=== PATIENT | female | born 1955 | race Caucasian/White ===

== ENCOUNTER → 2017-01-07 | Outpatient (CLI) | payer BC ==
[~2017-01-07] MED LIST: DEPO METHYLPREDNISOLONE 40 MG/ML SDV ONE; IOPAMIDOL (ISOVUE 370) 100 ML BTL IV ONE; LIDOCAINE 1% 2 ML INJ ONE; LIDOCAINE 1% 300 MG/30 ML SDV ONE; ROPIVACAINE HCL 150 MG/30 ML INJ ONE
== END ==
LOC: FIMAGING 12:59
PROVIDERS: ATTEND Orthopaedic Surgery
PROC: 3E0U3BZ Introduction of Anesthetic Agent into Joints, Percutaneous Approach (ICD-10-PCS; principal; 2017-01-07)
PROC: 3E0U33Z Introduction of Anti-inflammatory into Joints, Percutaneous Approach (ICD-10-PCS; principal; 2017-01-07)
DX: M25.552 Pain in left hip (principal)
CPT/HCPCS: J1030; J2795; Q9967

== ENCOUNTER → 2017-06-21 | Outpatient (CLI) | payer BC | LOC: FIMAGING 14:48 | PROVIDERS: ATTEND Family Medicine Sports Medicine | DX: Z12.31 Encounter for screening mammogram for malignant neoplasm of breast (principal) | CPT/HCPCS: G0202 ==

== ENCOUNTER 2017-09-24 05:28 | Emergency (ER) | payer BC ==
[2017-09-24 05:34] VITALS: TEMP 98.4
[2017-09-24] MEDS ORDERED: NS 1,000 ML IV ONE (05:45)
--- NOTE | 2017-09-24 05:56 | EDPHY ---
H & P Stated Complaint: R abd pain since 2099, N/V/D Time Seen by Provider: 09/24/17 05:38 HPI/ROS: Chief Complaint: Abdominal pain HPI: 62-year-old woman began developing right sided abdominal pain several hours ago while on a plane flight to [place]. Has had some nausea and vomiting. No coffee grounds or blood in her emesis. She has had some loose thin caliber stools but no ghassan diarrhea. No dark tarry stools or blood. She is currently being treated with metronidazole for a dental abscess and is scheduled for dental surgery tomorrow. Patient came home went to bed but woke this morning with pain returning again. Is primarily in the right side. About a 4/10. There are no aggravating or alleviating factors. Is not moving. She has not had similar episodes in the past. No abdominal surgeries. No fevers or chills. No cough. ROS: 10 point Review of Systems is negative except as noted in the HPI. PMH: Denies Social History: No smoking, no alcohol, no recreational drug use Family History: non-contributory Physical Exam: Gen: Awake, Alert, No Distress HEENT: Nose: no rhinorrhea Eyes: PERRLA, EOMI Mouth: Moist mucosa Neck: Supple, no JVD Chest: nontender, lungs clear to auscultation Heart: S1, S2 normal, no murmur Abd: Soft, moderate right lower quadrant tenderness, no guarding, no upper abdominal tenderness, negative Eng sign. Back: no CVA tenderness, no midline tenderness Ext: no edema, non-tender Skin: no rash Neuro: CN II-XII intact, Sensation grossly intact, Strength 5/5 in bilateral upper and lower extremities - Personal History Current Tetanus/Diphtheria Vaccine: Yes - Medical/Surgical History Hx Asthma: No Hx Chronic Respiratory Disease: No Hx Diabetes: No Hx Cardiac Disease: No Hx Renal Disease: No Hx Cirrhosis: No Hx Alcoholism: No Hx HIV/AIDS: No Hx Splenectomy or Spleen Trauma: No Other PMH: denies - Social History Smoking Status: Never smoked Constitutional: Initial Vital Signs Temperature (C) 36.9 C 09/24/17 05:30 Heart Rate 70 09/24/17 05:30 Respiratory Rate 18 09/24/17 05:30 Blood Pressure 102/77 09/24/17 05:30 O2 Sat (%) 94 09/24/17 05:30 O2 Delivery Mode Room Air Allergies/Adverse Reactions: No Known Allergies Allergy (Unverified 01/14/10 10:15) Home Medications: Medication Instructions Recorded Hydrocodone/Acetaminophen 1 - 2 each PO Q4-6PRN PRN #10 09/24/17 [Hydrocodon-Acetaminophen 5-325] tablet Tamsulosin HCl 0.4 mg PO DAILY #10 cap 09/24/17 Medical Decision Making - Diagnostics Imaging Results: Imaging Impressions Abdomen CT 09/24/17 05:45 Impression: 1. A 2-mm calculus at the right ureteropelvic junction, with mild right hydronephrosis. Nonobstructive calculi in both kidneys. 2. Constipation. No CT findings for appendicitis. 3. Other chronic findings, as above. Results called and discussed with Rene Carr M.D., on September 24, 2017 at 0702. Final interpretation concurs with initial preliminary photonics engineer radiologist impression. CT scan of the abdomen and pelvis: 2 mm prox R ureteral stone with minimal hydro. Normal appendix, moderate constipation. Interpreted by Dr. Harrington. Imaging: Discussed imaging studies w/ orthoptist Radiologist ED Course/Re-evaluation: CT scan reveals kidney stone. No appendicitis. Patient's pain is controlled. Will discharge on tamsulosin analgesia, follow up with Urology. - Data Points Laboratory Results: Laboratory Results 09/24/17 05:55 09/24/17 05:55 Medications Given: Discontinued Medications Sodium Chloride (Ns) 1,000 mls @ 0 mls/hr IV ONCE ONE; Wide Open PRN Reason: Protocol Stop: 09/24/17 05:46 Last Admin: 09/24/17 06:01 Dose: 1,000 mls Departure - Departure Disposition: Home, Routine, Self-Care Clinical Impression: Kidney stone Condition: Good Instructions: Kidney Stones (ED) Additional Instructions: Follow up with Urology in 3-4 days if symptoms are not improving. Return to the emergency depart for increasing abdominal pain, fevers or chills, nausea, vomiting, or any other concerns. Referrals: Corky Carrion MD [Primary Care Provider] - As per Instructions Fredrick Frankel MD [Medical Doctor] - As per Instructions Prescriptions: Hydrocodone/Acetaminophen [Hydrocodon-Acetaminophen 5-325] 1 - 2 each PO Q4- 6PRN PRN #10 tablet PRN Reason: Pain, Severe Tamsulosin HCl 0.4 mg PO DAILY #10 cap
[2017-09-24 06:14] LABS: PLATELET COUNT 236 10^3/uL (150-400)
[2017-09-24] MEDS ORDERED: IOPAMIDOL (ISOVUE-300) 100 ML BTL ONE (06:19)
[2017-09-24 07:28] VITALS: BP 103/71; PULSE 98; RESP 16; O2SAT 98
== END 2017-09-24 07:28 | disposition home or self-care (01) ==
DX: N20.0 Calculus of kidney (principal); E86.9 Volume depletion, unspecified
CPT/HCPCS: Q9967

== ENCOUNTER 2017-11-13 05:57 | Inpatient (IN) | payer BC ==
[~2017-11-13 05:57] MED LIST changes: -DEPO METHYLPREDNISOLONE 40 MG/ML SDV ONE; -IOPAMIDOL (ISOVUE 370) 100 ML BTL IV ONE; -LIDOCAINE 1% 2 ML INJ ONE; -LIDOCAINE 1% 300 MG/30 ML SDV ONE; +ROPIVACAINE 0.2% 80 MG, EPINEPHrine 0.2 MG, KETOROLAC TROMETHAMINE 30 MG in SYRINGE 0 ML IU ONE; -ROPIVACAINE HCL 150 MG/30 ML INJ ONE
[2017-11-13] MEDS ORDERED: BUPI/epINEPH/KETOROLAC IU ONE (06:00)
[2017-11-13] MEDS ORDERED: TRANEXAMIC ACID 3,000 MG in NS (SYRINGE) 50 ML IRR ONE (06:00)
[2017-11-13] MEDS ORDERED: ceFAZolin 2 GM/SWFI 2 GM/20 ML SYR IVP ONE (06:11)
[2017-11-13] MEDS ORDERED: ACETAMINOPHEN 325 MG TAB PO ONE (06:11)
[2017-11-13] MEDS ORDERED: DEXAMETHASONE 4 MG/ML VIAL IVP ONE (06:11)
[2017-11-13] MEDS ORDERED: FAMOTIDINE 20 MG TAB PO ONE (06:11)
[2017-11-13] MEDS ORDERED: LIDOCAINE 1% 2 ML INJ ID PRN (06:14)
[2017-11-13] MEDS ORDERED: LR 1,000 ML IV ONE (06:14)
[2017-11-13] MEDS ORDERED: TRANEXAMIC ACID 3,000 MG/50 ML BAG IRR ONE (06:40)
[2017-11-13] MEDS ORDERED: MIDAZOLAM 2 MG/2 ML VIAL IVP ONE (07:00)
[2017-11-13] MEDS ORDERED: SCOPOLAMINE HYDROBROMIDE 1 MG/3 DAYS PATCH TD SCH (07:00)
[2017-11-13] MEDS ORDERED: DEXAMETHASONE 4 MG/ML VIAL IVP PRN (07:02)
[2017-11-13] MEDS ORDERED: LR 500 ML IV PRN (07:02)
[2017-11-13] MEDS ORDERED: epHEDrine SULFATE 10 MG/ML SYR IVP PRN (07:02)
[2017-11-13] MEDS ORDERED: MIDAZOLAM 2 MG/2 ML VIAL ONE (07:02)
[2017-11-13] MEDS ORDERED: NALOXONE HCL 0.4 MG/ML INJ IVP PRN (07:02)
[2017-11-13] MEDS ORDERED: fentaNYL 100 MCG/2 ML INJ IVP PRN (07:02)
[2017-11-13] MEDS ORDERED: ONDANSETRON 4 MG/2 ML VIAL IVP PRN ×2 (07:02→07:18)
--- NOTE | 2017-11-13 07:02 | PDANEPAE ---
ANE History of Present Illness here for L HERO ANE Past Medical History - Cardiovascular History Hx Hypertension: No Hx Arrhythmias: No Hx Chest Pain: No Hx Coronary Artery / Peripheral Vascular Disease: No Hx CHF / Valvular Disease: No Hx Palpitations: No - Pulmonary History Hx COPD: No Hx Asthma/Reactive Airway Disease: No Hx Recent Upper Respiratory Infection: No Hx Oxygen in Use at Home: No Hx Sleep Apnea: No Sleep Apnea Screening Result - Last Documented: Negative - Neurologic History Hx Cerebrovascular Accident: No Hx Seizures: No Hx Dementia: No - Endocrine History Hx Diabetes: No Hyperthyroid: No Obesity: no - Renal History Hx Renal Disorders: No Renal History Comment: HX KIDNEY STONES - Liver History Hx Hepatic Disorders: No - Neurological & Psychiatric Hx Hx Neurological and Psychiatric Disorders: Yes Neurological / Psychiatric History Comment: DEPRESSION ANXIETY - Cancer History Hx Cancer: No - Congenital Disorder History Hx Congenital Disorders: No - GI History Hx Gastrointestinal Disorders: No - Other Health History Other Health History: OSTEOPENIA - Chronic Pain History Chronic Pain: Yes - Surgical History Prior Surgeries: RT SHOULDER IMPIGMENT AND LABRUM REPAIR 2015. ANE Review of Systems Review of systems is: negative Review of Systems: - Exercise capacity Exercise capacity: >=4 METS METS (RN): 5 METS ANE Patient History - Allergies Allergies/Adverse Reactions: No Known Allergies Allergy (Unverified 01/14/10 10:15) - Home Medications Home medications: home medication list seen and reviewed Home Medications: Calcium Carbonate [Oyster Shell Calcium 500 mg (*)] 1,000 mg PO DAILY 10/28/17 [ Last Taken 11/06/17] Cholecalciferol Vit D3 [Vitamin D3 2000 units tab (OTC)] 2,000 units PO DAILY [Last Taken 11/06/17] Escitalopram Oxalate [Lexapro] 10 mg PO HS 10/28/17 [Last Taken 11/12/17] Ibuprofen [Motrin (*)] 200 mg PO DAILY PRN 10/28/17 [Last Taken 11/06/17] - NPO status NPO Status: no food or drink >8 hours NPO Since - Liquids (Date): 11/12/17 NPO Since - Liquids (Time): 19:00 NPO Since - Solids (Date): 11/12/17 NPO Since - Solids (Time): 19:00 - Anes Hx Anes Hx: no prior problems - Smoking Hx Smoking Status: Never smoked - Family Anes Hx Family Hx Anesthesia Complications: NA ANE Labs/Vital Signs - Vital Signs Vital Signs: reviewed preoperatively; see RN documention for details Blood Pressure: 90/58 Heart Rate: 67 Respiratory Rate: 16 O2 Sat (%): 95 Height: 167.64 cm Weight: 61.235 kg ANE Physical Exam - Airway Neck exam: FROM Mallampati Score: Class 1 - Pulmonary Pulmonary: no respiratory distress - Cardiovascular Cardiovascular: regular rate and rhythym - ASA Status ASA Status: II ANE Anesthesia Plan Anesthesia Plan: MAC, spinal
[2017-11-13] MEDS ORDERED: fentaNYL 100 MCG/2 ML INJ ONE (07:05)
[2017-11-13] MEDS ORDERED: BUPIVACAINE 0.5% 30 ML SDV ONE (07:08)
--- NOTE | 2017-11-13 07:11 | PDHPUP ---
History & Physical Update H&P update statement: This history and physical update is based on an assessment of the patient which was completed after admission or registration (within 24 hours), but prior to the surgery/procedure. H&P update: H&P reviewed & patient examined, no change in patient's condition since H&P completed
[2017-11-13] MEDS ORDERED: SCOPOLAMINE HYDROBROMIDE 1 MG/3 DAYS PATCH TD ONE (07:15)
[2017-11-13] MEDS ORDERED: DIPHENOXYLATE/ATROPINE LOMOTIL 1 TAB PO PRN (07:18)
[2017-11-13] MEDS ORDERED: ONDANSETRON DISINTEGRATING 4 MG TAB PO PRN (07:18)
[2017-11-13] MEDS ORDERED: PROMETHAZINE HCL 25 MG SUPPR PR PRN (07:18)
[2017-11-13] MEDS ORDERED: TEMAZEPAM 15 MG CAP PO PRN (07:18)
[2017-11-13] MEDS ORDERED: PROMETHAZINE HCL 25 MG/ML INJ IVP PRN (07:18)
[2017-11-13] MEDS ORDERED: LACTULOSE 20 GM/30 ML UDCUP PO PRN (07:18)
[2017-11-13] MEDS ORDERED: METOCLOPRAMIDE 10 MG/2 ML VIAL IVP PRN (07:18)
[2017-11-13] MEDS ORDERED: BISACODYL 10 MG SUPP PR PRN (07:18)
[2017-11-13] MEDS ORDERED: POLYETHYLENE GLYCOL 3350 17 GM PKT PO PRN (07:18)
[2017-11-13] MEDS ORDERED: CYCLOBENZAPRINE 10 MG TAB PO PRN (07:18)
[2017-11-13] MEDS ORDERED: diphenhydrAMINE 25 MG CAP PO PRN (07:18)
[2017-11-13] MEDS ORDERED: MAGNESIUM HYDROXIDE 30 ML UDCUP PO PRN (07:18)
[2017-11-13] MEDS ORDERED: PROPOFOL/EMULSION 500 MG/50 ML BOTTLE IV ONE (07:22)
[2017-11-13] MEDS ORDERED: LR 1,000 ML IV SCH (07:30)
[2017-11-13] MEDS ORDERED: PROPOFOL 200 MG/20 ML VIAL ONE (07:59)
--- NOTE | 2017-11-13 08:22 | PDMN ---
Medical Necessity Medical necessity: S560 hip arthroplasty A-2 INPT only: L HERO
--- NOTE | 2017-11-13 08:24 | POSTOPPROG ---
Post Op Note Date of Operation: 11/13/17 Surgeon: Boby Almeida Head Boys Golf Coach: triston almeida Anesthesiologist: dr. ortega Anesthesia: Spinal Pre-op Diagnosis: left hip OA Post-op Diagnosis: same Indication: left hip pain Procedure: L HERO ant approach Findings: severe hip OA Inf/Abcess present in the surg proc area at time of surgery?: No EBL: 100-500
[2017-11-13] MEDS: ACETAMINOPHEN 325 MG TAB PO SCH ×3 (11:53→23:49)
[2017-11-13] MEDS: oxyCODONE IR 5 MG TAB PO PRN ×4 (11:57→20:40)
[2017-11-13] MEDS: SENNOSIDES/DOCUSATE SODIUM TAB PO SCH ×2 (12:27→20:40)
[2017-11-13] MEDS: ceFAZolin 2 GM/SWFI 2 GM/20 ML SYR IVP SCH ×2 (13:46→21:33)
--- NOTE | 2017-11-13 13:46 | POSTANESTH ---
Post Anesthetic Evaluation Cardiovascular Status: Normal, Stable Respiratory Status: Normal, Stable Level of Consciousness/Mental Status: Can Participate in Eval Pain Control: Adequate, Prn Tx Ordered Nausea/Vomiting Control: Adequate, Prn Tx Ordered Complications Possibly Related to Anesthesia: None Noted
[2017-11-13] MEDS ORDERED: ceFAZolin 2 GM/DEXTROSE 100 ML IV SCH (14:00)
--- NOTE | 2017-11-13 17:50 | GOP ---
[f rep st] OPERATIVE REPORT DATE OF OPERATION: 11/13/2017 SURGEON: Tom Ochoa MD LOCKSTITCH BINDER: LUAN Ureña. ANESTHESIA: Spinal. PREOPERATIVE DIAGNOSIS: Left hip osteoarthritis. POSTOPERATIVE DIAGNOSIS: Left hip osteoarthritis. PROCEDURE PERFORMED: Left total hip arthroplasty with x-ray. FINDINGS: ESTIMATED BLOOD LOSS: 200 cc. INDICATIONS: The patient has progressively worsening arthritis of the hip which has failed medical m anagement. The patient understands the treatment options including continued non-operative care and has selected surgical intervention. The patient has decided to undergo total hip arthroplasty via th e direct anterior approach, understanding the risks of the procedure including, but not limited to, n eurovascular injury, infection, persistent pain, component wear and loosening, deep venous thrombosis , pulmonary embolism, limb length inequality, hip instability (including dislocation), and intra-oper ative fractures. DESCRIPTION OF PROCEDURE: After proper identification of the patient including verification and velma ing the surgical site, the patient was brought to the operating room and placed in the supine positio n. All bony prominences were well padded. Anesthesia was induced without complication and intraveno us prophylactic antibiotics were administered prior to skin incision. The operative leg was placed in the Trumpf Arch table extension and the well leg in a Yellofin leg ho lder. The patient was prepped and draped in the usual sterile fashion. The C-arm was draped for int ra-operative fluoroscopy to check acetabular position, femoral component position including leg lengt h and femoral offset. Attention was then drawn to surgical exposure of the hip. An incision was made with a #10 Bard Romeo r blade starting 3 cm lateral and 3 cm distal to the anterior superior iliac spine measuring 8-10 cm and coursing distally toward the greater trochanter. The skin and subcutaneous tissues were divided sharply down to the fascia anastasiya. The fascia anastasiya was incised in line with the skin incision exposing the underlying tensor fascia anastasiya muscle. The muscle was bluntly elevated from the fascia and the f irst extracapsular Cobra retractor was placed laterally at the junction of the superior femoral neck and greater trochanter. The lateral femoral circumflex vessels were identified, cauterized, and divi ded with the Aquamantys bipolar cautery. The deep investing fascia of the TFL was divided to allow p eduar mobilization of the muscle preventing damage during the retraction. The reflected head of the rectus femoris muscle was elevated off the anterior hip capsule and a medial Cobra retractor was plac ed just proximal to the lesser trochanter. The anterior capsulotomy was made sharply from the superolateral acetabulum to the saddle junction of the superior femoral neck and greater trochanter, then coursing inferomedial towards the lesser troc hanter. The retractors were then placed in the intracapsular position for femoral neck osteotomy. C orresponding to pre-operative templating, the osteotomy was made with the oscillating saw carefully p rotecting the greater trochanter and soft tissues. The femoral head was removed from the acetabulum with a corkscrew and confirmed to be severely arthritic with exposed bone, deformity and osteophytes. Similar findings were confirmed in the acetabulum. The Arch table extension was then placed in 40 degrees external rotation. Attention was then drawn to the acetabular preparation. After placement of the anterior and posterio r Cobra retractors outside the labrum and intracapsular, the circumferential labrum was removed sharp ly. The foveal contents were then removed and hemostasis obtained with cautery. The first reamer selected was sized using the removed femoral head. Reaming began with medialization and then commenced in 2 mm increments at 45 degrees of abduction and 15 degrees of anteversion using fluoroscopic navigation. Reaming ceased 1 mm less than the definitive acetabular component and ana esponded to the pre-operative templating. The final acetabular component was inserted using fluorosc opy to achieve proper orientation yielding excellent purchase and stability in the acetabulum. The f inal acetabular liner was then placed and its seating confirmed. Attention was then turned to the femur. The Arch table extension was placed in extension and adducti on, delivering the osteotomized femoral neck into the wound. A 2-pronged femoral elevator was placed at the calcar and another at the tip of the greater trochanter. The posterolateral capsule was rele ased with cautery allowing mobilization of the femur lateral and anterior for preparation. The exter nal rotators were visualized and preserved. A curette and rongeur were used to open the starting poi nt for broaching. Serial broaching started with the #0 broach and ended with the broach that exhibit ed excellent fit in the proximal femur. A change in pitch during mallet strikes was accompanied by t he inability to advance the broach any further. The trial reduction was performed and fluoroscopic n avigation was utilized to check limb length. Adjustments were made to equalize limb length according ly. After the final trials were accepted they were removed and the wound was copiously lavaged. The femo ral component was seated to the same depth as the final broach and the femoral head was impacted onto the clean trunnion. The hip was then reduced for the final time and once more fluoroscopy was used to check that limb length equality was achieved. The wound was irrigated and closed in layers, the fascia anastasiya with 2-0 Quill, the subcutaneous tissue with 2-0 Quill, and the skin with Dermabond. Sterile dressings were applied. Final sharps and spon ge counts were accurate. The patient was then transferred to a hospital bed and brought to the [facility] room in stable condition. IMPLANTS: Accolade II, size 4 at 127. Acetabular component a 48 mm Tritanium. The liner is a Tride nt X3, 32 mm. The head is a Biolox Delta, 32 mm -4. /[id number]/MODL
[2017-11-13] MEDS: FAMOTIDINE 20 MG TAB PO SCH (20:41)
[2017-11-13] MEDS: ASPIRIN 81 MG CHEWABLE TAB PO SCH (20:41)
[2017-11-13] MEDS ORDERED: ESCITALOPRAM OXALATE 10 MG TAB PO SCH (21:00)
[2017-11-14] MEDS: ACETAMINOPHEN 325 MG TAB PO SCH ×2 (05:01→12:43)
[2017-11-14] MEDS: oxyCODONE IR 5 MG TAB PO PRN (05:02)
[2017-11-14 08:16] VITALS: BP 92/59
[2017-11-14] MEDS: ASPIRIN 81 MG CHEWABLE TAB PO SCH (09:35)
[2017-11-14] MEDS: SENNOSIDES/DOCUSATE SODIUM TAB PO SCH (09:36)
[2017-11-14] MEDS: FAMOTIDINE 20 MG TAB PO SCH (09:36)
--- NOTE | 2017-11-14 09:56 | SOAPPROG ---
SOAP Progress Note Assessment/Plan: Assessment: Patient is doing well POD 1 s/p L HERO Pain management: pain is well controlled on oral pain meds. VTE ppx: recommend aspirin 81 mg BID for 4 weeks, cont MARTIN and SCDs Anemia: level is expected initially postop. Asymptomatic. Continue to monitor D/c planning: d/c to home today pending release from PT Plan: 11/14/17 09:55 Subjective: Talya is resting comfortably, states pain has improved today compared to yesterday, states flexeril alleviated pain, denies SOB, chest pain and N/V Objective: Vital Signs Temp Pulse Resp BP Pulse Ox 36.7 C 63 16 92/59 L 97 11/14/17 08:00 11/14/17 08:00 11/14/17 08:00 11/14/17 08:00 11/14/17 08:00 Laboratory Results 11/14/17 04:42 11/13/17 11/14/17 11/15/17 05:59 05:59 05:59 Intake Total 2355 Output Total 1900 Balance 455 LLE;Incision dressing is clean and dry, NVI< +pf/df ICD10 Worksheet Patient Problems: Problems Problem Status Onset Primary localized osteoarthritis of left hip Acute
[2017-11-16] MEDS ORDERED: PATCH REMOVAL 1 EA PATCH TD SCH (07:01)
== END 2017-11-14 12:55 | disposition home or self-care (01) | DRG 470 ==
LOC: F3N 05:57
PROVIDERS: ADMIT Orthopaedic Surgery; ATTEND Orthopaedic Surgery
PROC: 0SRB04Z Replacement of Left Hip Joint with Ceramic on Polyethylene Synthetic Substitute, Open Approach (ICD-10-PCS; principal; 2017-11-13 07:15)
DX: M16.12 Unilateral primary osteoarthritis, left hip (principal)
CPT/HCPCS: 97116-GP; 97161-GP; 97165-GO; 97535-GO; J0171; J0690; J1100; J1885; J2250; J2704; J3010

== ENCOUNTER → 2018-08-08 | Outpatient (CLI) | payer BC | LOC: FLAB 15:35 | PROVIDERS: ATTEND Orthopaedic Surgery | DX: M21.70 Unequal limb length (acquired), unspecified site (principal); Z96.642 Presence of left artificial hip joint ==